=== PATIENT | male | born 1985 | race Caucasian/White ===

== ENCOUNTER 2021-10-08 03:08 | Inpatient (IN) | payer MEDICAID ==
[~2021-10-08] VITALS: Ht 175.3 cm; Wt 150.0 kg
--- NOTE | 2021-10-08 03:23 | NUR ---
Pt presents to the ed tx area via ems with c/o body aches, fever, chills, sob, will mild nausea s/p insect bites times 2- 3 days ago ( pt is a poor historian); the pt appears drowsy, but oriented times four, he denies cp, vomiting and diarrhea, or other related symptoms; pt is on monitor, vss. will ctm.
[2021-10-08] MEDS ORDERED: ondansetron/PF 4mg/2ml inj IV ONE (04:00)
--- NOTE | 2021-10-08 04:00 | NUR ---
IV #20 G inserted, pt waldemar pro well, labs collected and sent; urine sent; covid-19 spec sent; blood cx collected and sent.
--- NOTE | 2021-10-08 04:00 | NUR ---
Pt medicated per mar
[2021-10-08] MEDS ORDERED: CefTRIAXone 2gm/D5W 50ml BAG 50 ML IV ONE (04:05)
[2021-10-08] MEDS ORDERED: normal saline 1000ML IV soln IV ONE (04:05)
[2021-10-08] MEDS ORDERED: TETanus/Pertussis (Acell)/Diphther VAC/PF (Tdap-Adult) 0.5ml syringe IMVAC ONE (04:10)
[2021-10-08 04:37] LABS: BASOPHILS % (AUTO) 0.5 % (0-1); EOSINOPHILS % (AUTO) 0.1 % (0-6); HEMATOCRIT 39.4 % (42.0-52.0); HEMOGLOBIN 13.5 g/dl (14.0-17.9); LYMPHOCYTES # (AUTO) 0.9 X10'3 (1.1-4.8); LYMPHOCYTES % (AUTO) 9.3 % (21-51); MEAN CORPUSCULAR HEMOGLOBIN 29.7 PG (27.0-31.0); MEAN CORPUSCULAR HGB CONC 34.4 g/dL (33.0-36.5); MEAN CORPUSCULAR VOLUME 86.3 FL (78-98); MEAN PLATELET VOLUME 8.6 FL (7.4-10.4); MONOCYTES # (AUTO) 0.7 X10'3 (0-0.9); NEUTROPHILS % (AUTO) 83.1 % (42-75); PLATELET COUNT 264 X10'3 (140-440); RED BLOOD COUNT 4.56 X10'6 (4.70-6.10); RED CELL DISTRIBUTION WIDTH 14.6 % (11.5-14.5); WHITE BLOOD COUNT 9.6 X10'3 (4.5-11.0)
[2021-10-08 04:48] LABS: CLARITY,URINE CLEAR (Clear); COLOR,URINE YELLOW (Yellow); GLUCOSE, URINE NEGATIVE (Neg); KETONES,URINE TRACE mg/dl (Neg); LEUKOCYTE ESTERASE ,URINE NEGATIVE (Neg); NITRITES, URINE NEGATIVE (Neg); OCCULT BLOOD,URINE NEGATIVE (Neg); PROTEIN,URINE NEGATIVE (Neg); UA COLLECTION TYPE NON-SPECIFIED
[2021-10-08 05:41] LABS: ALANINE AMINOTRANSFERASE 100 U/L (12-78); ALBUMIN 3.2 G/DL (3.4-5.0); ALBUMIN/GLOBULIN RATIO 0.8 (1.1-1.5); ALKALINE PHOSPHATASE 63 IU/L (46-116); ANION GAP 8 (8-16); ASPARTATE AMINO TRANSFERASE 45 U/L (10-37); BILIRUBIN,TOTAL 0.7 MG/DL (0.1-1.0); BLOOD UREA NITROGEN 13 MG/DL (7-18); BUN/CREATININE RATIO 13.5 (5.4-32.0); CALCIUM 8.6 MG/DL (8.5-10.1); CHLORIDE 97 MMOL/L (99-107); CREATININE 0.96 MG/DL (0.60-1.10); GLUCOSE 133 MG/DL (70-104); POTASSIUM 4.3 MMOL/L (3.5-5.1); SODIUM 132 MMOL/L (135-145); TOTAL CARBON DIOXIDE 27.5 MMOL/L (24-32); eGFR 88 ML/MIN
[2021-10-08 05:49] LABS: C-REACTIVE PROTEIN 4.77 MG/DL (0.0-0.5); MAGNESIUM 1.9 MG/DL (1.5-2.4)
[2021-10-08] MEDS ORDERED: vancomycin/NS 1 GM ADD-VANTAGE 250 ML IV ONE (05:50)
[2021-10-08 06:20] LABS: D-DIMER 0.26 MG/L FEU (0-0.50)
--- NOTE | 2021-10-08 06:45 | NUR ---
Received report from SUMAN Cantu. Pt 02 sats 100% on RA. Will defer O2 order until needed
--- NOTE | 2021-10-08 07:47 | NUR ---
Echo complete. Pt asleep. No apparent distress or needs at this time.
[2021-10-08] MEDS ORDERED: acetaminophen 325mg tablet PO PRN ×2 (09:00)
[2021-10-08] MEDS ORDERED: magnesium 4gm in 100ml NS 100 ML IV PRN (09:00)
[2021-10-08] MEDS ORDERED: magnesium 2GM in 50ml NS 50 ML IV PRN (09:00)
[2021-10-08] MEDS ORDERED: HYDROcodone/acetaminophen 5mg/325mg tablet PO PRN (09:00)
[2021-10-08] MEDS ORDERED: mag hydrox/Alum hydrox/simeth 30ml oral suspension PO PRN (09:00)
[2021-10-08] MEDS ORDERED: ondansetron/PF 4mg/2ml inj IV PRN (09:00)
[2021-10-08] MEDS ORDERED: magnesium hydroxide 30ml (MOM) UD suspension PO PRN (09:00)
[2021-10-08] MEDS ORDERED: magnesium Cl slow-release 64mg tablet PO PRN (09:00)
[2021-10-08] MEDS ORDERED: morphine 2 MG/ML inj. syringe IV PRN (09:00)
[2021-10-08] MEDS ORDERED: potassium Cl 20 mEq SR tablet PO PRN ×2 (09:00)
[2021-10-08] MEDS ORDERED: potassium CL 10mEq/100ml bag 100 ML IV PRN (09:00)
--- NOTE | 2021-10-08 09:17 | NUR ---
NKDA, no meds
[2021-10-08] MEDS: normal saline 1000ml 1,000 ML IV SCH ×2 (09:21→19:42)
[2021-10-08 10:28] LABS: CREATINE KINASE 88 U/L (39-308)
--- NOTE | 2021-10-08 15:00 | NUR ---
Patient in room [facility] 307. I have received report from SUMAN STEPHENS, and had the opportunity to ask questions and assume patient care.
--- NOTE | 2021-10-08 15:00 | NUR ---
Called medical floor to give report. Nurse had not been assigned yet. Will call back.
[2021-10-08] MEDS ORDERED: NO HOME MEDS (15:32)
[2021-10-08 16:31] VITALS: BP 131/80
--- NOTE | 2021-10-08 18:04 | NUR ---
Problems reprioritized. Patient report given, questions answered & plan of care reviewed with SUMAN GARCIA.
[2021-10-08 19:31] VITALS: BP 128/86
[2021-10-08] MEDS: doxycycline inj 100 MG in normal saline 100ml IV soln 100 ML IV SCH (19:33)
[2021-10-08] MEDS: heparin, porcine 5000 units/ml vial SQ SCH (19:34)
[2021-10-08] MEDS: K and/or MAG REPLACEMENT MC SCH (19:34)
[2021-10-08 22:34] VITALS: BP 130/89
[2021-10-09 05:00] VITALS: BP 121/68
[2021-10-09] MEDS: normal saline 1000ml 1,000 ML IV SCH ×2 (05:09→15:00)
[2021-10-09 06:00] VITALS: BP 121/70
[2021-10-09 07:15] LABS: BASOPHILS % (AUTO) 0.5 % (0-1); EOSINOPHILS # (AUTO) 0.1 X10'3 (0-0.9); EOSINOPHILS % (AUTO) 0.8 % (0-6); HEMATOCRIT 38.3 % (42.0-52.0); HEMOGLOBIN 12.6 g/dl (14.0-17.9); LYMPHOCYTES # (AUTO) 1.3 X10'3 (1.1-4.8); LYMPHOCYTES % (AUTO) 19.3 % (21-51); MEAN CORPUSCULAR HEMOGLOBIN 29.1 PG (27.0-31.0); MEAN CORPUSCULAR VOLUME 88.2 FL (78-98); MEAN PLATELET VOLUME 7.9 FL (7.4-10.4); MONOCYTES # (AUTO) 0.6 X10'3 (0-0.9); MONOCYTES % (AUTO) 9.7 % (2-12); NEUTROPHILS # (AUTO) 4.6 X10'3 (1.8-7.7); NEUTROPHILS % (AUTO) 69.7 % (42-75); PLATELET COUNT 184 X10'3 (140-440); RED BLOOD COUNT 4.34 X10'6 (4.70-6.10); RED CELL DISTRIBUTION WIDTH 14.4 % (11.5-14.5); WHITE BLOOD COUNT 6.7 X10'3 (4.5-11.0)
[2021-10-09 07:35] LABS: ALANINE AMINOTRANSFERASE 73 U/L (12-78); ALBUMIN 2.7 G/DL (3.4-5.0); ALBUMIN/GLOBULIN RATIO 0.8 (1.1-1.5); ALKALINE PHOSPHATASE 55 IU/L (46-116); ANION GAP 7 (8-16); ASPARTATE AMINO TRANSFERASE 34 U/L (10-37); BILIRUBIN,TOTAL 0.3 MG/DL (0.1-1.0); BLOOD UREA NITROGEN 9 MG/DL (7-18); BUN/CREATININE RATIO 12.2 (5.4-32.0); CALCIUM 8.4 MG/DL (8.5-10.1); CHLORIDE 104 MMOL/L (99-107); CREATININE 0.74 MG/DL (0.60-1.10); GLUCOSE 90 MG/DL (70-104); POTASSIUM 4.1 MMOL/L (3.5-5.1); SODIUM 136 MMOL/L (135-145); TOTAL CARBON DIOXIDE 24.8 MMOL/L (24-32); TOTAL PROTEIN 6.3 G/DL (6.4-8.2); eGFR > 90 ML/MIN
[2021-10-09] MEDS: K and/or MAG REPLACEMENT MC SCH ×2 (08:00→19:25)
[2021-10-09] MEDS: doxycycline inj 100 MG in normal saline 100ml IV soln 100 ML IV SCH ×2 (08:49→19:32)
[2021-10-09] MEDS: heparin, porcine 5000 units/ml vial SQ SCH ×2 (08:50→19:33)
[2021-10-09 10:00] VITALS: BP 120/68
[2021-10-09 15:00] VITALS: BP 124/70
[2021-10-09 19:00] VITALS: BP 117/71
[2021-10-09 22:00] VITALS: BP 120/72
[2021-10-10] MEDS: normal saline 1000ml 1,000 ML IV SCH (01:00)
[2021-10-10 02:00] VITALS: BP 121/68
[2021-10-10 06:00] VITALS: BP 123/72
[2021-10-10 06:02] LABS: BASOPHILS % (AUTO) 0.8 % (0-1); EOSINOPHILS # (AUTO) 0.1 X10'3 (0-0.9); EOSINOPHILS % (AUTO) 2.6 % (0-6); HEMOGLOBIN 12.9 g/dl (14.0-17.9); LYMPHOCYTES # (AUTO) 1.9 X10'3 (1.1-4.8); MEAN CORPUSCULAR HEMOGLOBIN 29.1 PG (27.0-31.0); MEAN CORPUSCULAR VOLUME 87.9 FL (78-98); MEAN PLATELET VOLUME 8.2 FL (7.4-10.4); MONOCYTES # (AUTO) 0.7 X10'3 (0-0.9); MONOCYTES % (AUTO) 14.1 % (2-12); NEUTROPHILS # (AUTO) 2.4 X10'3 (1.8-7.7); NEUTROPHILS % (AUTO) 45.5 % (42-75); PLATELET COUNT 219 X10'3 (140-440); RED BLOOD COUNT 4.43 X10'6 (4.70-6.10); RED CELL DISTRIBUTION WIDTH 14.5 % (11.5-14.5); WHITE BLOOD COUNT 5.3 X10'3 (4.5-11.0)
--- NOTE | 2021-10-10 06:16 | NUR ---
Problems reprioritized. Patient report given, questions answered & plan of care reviewed with DINH WILL.
[2021-10-10 06:40] LABS: ALANINE AMINOTRANSFERASE 73 U/L (12-78); ALBUMIN 2.8 G/DL (3.4-5.0); ALBUMIN/GLOBULIN RATIO 0.7 (1.1-1.5); ALKALINE PHOSPHATASE 54 IU/L (46-116); ANION GAP 7 (8-16); ASPARTATE AMINO TRANSFERASE 32 U/L (10-37); BILIRUBIN,TOTAL 0.2 MG/DL (0.1-1.0); BLOOD UREA NITROGEN 15 MG/DL (7-18); BUN/CREATININE RATIO 18.5 (5.4-32.0); CALCIUM 8.8 MG/DL (8.5-10.1); CHLORIDE 105 MMOL/L (99-107); CREATININE 0.81 MG/DL (0.60-1.10); GLUCOSE 76 MG/DL (70-104); POTASSIUM 4.2 MMOL/L (3.5-5.1); SODIUM 140 MMOL/L (135-145); TOTAL PROTEIN 6.8 G/DL (6.4-8.2); eGFR > 90 ML/MIN
[2021-10-10] MEDS: K and/or MAG REPLACEMENT MC SCH (08:00)
[2021-10-10] MEDS: doxycycline inj 100 MG in normal saline 100ml IV soln 100 ML IV SCH (08:07)
[2021-10-10] MEDS: heparin, porcine 5000 units/ml vial SQ SCH (08:07)
[2021-10-10] MEDS ORDERED: DOXY-243 PO (10:57)
== END 2021-10-10 13:35 | disposition home or self-care (01) | DRG 383 ==
LOC: ER 03:08 → ED HOLD 09:02 → EDBEDREQ 14:48 → MED 3N 16:13
PROVIDERS: ADMIT Internal Medicine; ATTEND Internal Medicine
PROC: 3E0234Z Introduction of Serum, Toxoid and Vaccine into Muscle, Percutaneous Approach (ICD-10-PCS; principal; 2021-10-08)
DX: L03.113 Cellulitis of right upper limb (principal); E87.1 Hypo-osmolality and hyponatremia; B34.9 Viral infection, unspecified; E86.0 Dehydration; F15.90 Other stimulant use, unspecified, uncomplicated; Z20.822 Contact with and (suspected) exposure to COVID-19; S30.861A Insect bite (nonvenomous) of abdominal wall, initial encounter; W57.XXXA Bitten or stung by nonvenomous insect and other nonvenomous arthropods, initial encounter; R21 Rash and other nonspecific skin eruption; Z56.0 Unemployment, unspecified; Z23 Encounter for immunization; Y93.89 Activity, other specified; Y92.89 Other specified places as the place of occurrence of the external cause; Y99.8 Other external cause status
CPT/HCPCS: 36415; 71045; 80053; 81003; 82550; 83605; 83735; 83880; 84145; 85025; 85379; 85384; 85651; 86140; 87040; 87077; 87081; 87186; 87635; 90471; 90715; 93005; 93306; 96365; 96366; 96375; 99285; C9803; G0378; J0696; J1644; J2405; J3370; J3490; J7030